=== PATIENT | female | born 2005 | race Two or more races ===

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

== ENCOUNTER 2025-04-01 18:08 | Emergency (ER) | payer SELFPAY ==
[2025-04-01 18:13] VITALS: BP 111/79; PULSE 86; TEMP 36.8; O2SAT 98; BMI 18.8
--- NOTE | 2025-04-01 19:31 | PC.NURSE ---
this patient complains of 7 to 10 days vaginal and rectal white discharge, along lower back pain and leg cramps, also complete oral ATB for ureaplasma infection
--- OUTSIDE RECORDS SUMMARY | 2025-04-01 19:34 | XMS_ITS | Encounter Summary ---
Author Organization [facility] Address [address] [place] [address] Care Team Providers Care Block Handler Name Role Phone Unallocated, [facility]oms Provider Primary Care Provi keith Encounter Details DateTypeDepartmentCare Team (Latest Contact Info)Qzmjekloejc02/07/2025Telephone CHARISSEChristina RahmanVermilionjon RÍOS [address] [place] [address] Aura Rojas MD [address] [place] [address] Social History Tobacco UseTypesPacks/DayYears UsedDateSmoking Tobacco: FormerCigarettes Smokeless Tobacco: NeverAlcohol UseStandard Drinks/WeekCommentsNot Currently0 (1 standard drink = 0.6 oz pure alcohol)Caffeine: occassionallyPHQ-2AnswerDate RecordedPatient Health Questionnaire-2 Acols941CommentsNoSex and Gender InformationValueDate RecordedSex Assigned at BirthNot on fileLegal Sex Lhzvdr5201/08/2023 2:42 PM EDTGender IdentityNot on fileSexual OrientationNot on fileOccupationIndustryJob Start DateJob End DateKalahariNot on fileNot on file Not on filedocumented as of this encounter Plan of Treatment DateTypeDepartmentCare Team (Latest Contact Info)Jyjwbhdoaqs83/12/2025 3:15 PM ESTPostpartum Visit CHARISSEChristina Lolly RÍOS [address] [place] [address] Aura Rojas MD [address] [place] [address] documented as of this encounter Goals GoalPatient Goal TypeAssociated ProblemsRecent ProgressPatient-Stated?Author Reminders Care PlanOB RemindersNoOpen Scheduling, Backgrounddocumented as of this encounter Visit Diagnoses Diagnosis Vaginal leukorrhea- Primary documented in this encounter Additional Health Concerns Active ProblemsNoted DateDiagnosed DateOB Oorunugjv39/02/2024 documented as of this encounter Care Teams Team MemberRelationshipSpecialtyStart DateEnd Date Unallocated, Noms Provider, [address] [place] [address] PCP - GeneralFamily Oxnunqco09/19/23documented as of this encounter
--- OUTSIDE RECORDS SUMMARY | 2025-04-01 19:34 | XMS_ITS | Encounter Summary ---
Author Organization [facility] Address [address] [place] [address] Care Team Providers Care Master Carpenter Name Role Phone Unallocated, Noms Provider Primary Care Provi keith Encounter Details DateTypeDepartmentCare Team (Latest Contact Info)Imeezknygfs38/07/2025Patient Outreach [facility] [address] [place] [address] Julianna Piper LPN [address] [place], [place] [id number] Social History Tobacco UseTypesPacks/DayYears UsedDateSmoking Tobacco: FormerCigarettes Smokeless Tobacco: NeverAlcohol UseStandard Drinks/WeekCommentsNot Currently0 (1 standard drink = 0.6 oz pure alcohol)Caffeine: occassionallyPHQ-2AnswerDate RecordedPatient Health Questionnaire-2 Gusmj651CommentsNoSex and Gender InformationValueDate RecordedSex Assigned at BirthNot on fileLegal Sex Hfszpm5301/08/2023 2:42 PM EDTGender IdentityNot on fileSexual OrientationNot on fileOccupationIndustryJob Start DateJob End DateKalahariNot on fileNot on file Not on filedocumented as of this encounter Progress Notes * Julianna Piper LPN - 04/01/2025 8:46 AM EST Monthly outreach. Call to pt X2, LVM. documented in this encounter Plan of Treatment DateTypeDepartmentCare Team (Latest Contact Info)Mvfghahqmxo89/12/2025 3:15 PM ESTPostpartum Visit KLAUS RÍOS [address] [place] [phone] Aura Rojas MD [address] [place] [address] documented as of this encounter Goals GoalPatient Goal TypeAssociated ProblemsRecent ProgressPatient-Stated?Author Reminders Care PlanOB RemindersNoOpen Scheduling, Backgrounddocumented as of this encounter Visit Diagnoses Not on filedocumented in this encounter Additional Health Concerns Active ProblemsNoted DateDiagnosed DateOB Usvnekpmw55/02/2024 documented as of this encounter Care Teams Team MemberRelationshipSpecialtyStart DateEnd Date Unallocated, Nomfeliz Brewster MD [address] [place] [address] PCP - GeneralFamily Wwbbwnky41/19/23documented as of this encounter
--- OUTSIDE RECORDS SUMMARY | 2025-04-01 19:34 | XMS_ITS | Clinical Summary ---
Author Organization [facility] Address [address] [place] [id number] Care Team Providers Care Abrasive Mixer Helper Name Role Phone Unavailable Primary Care Provider Unavailabl e Allergies No known active allergies Medications No known medications Active Problems ProblemNoted DateDiagnosed DateAnhydramnios in second trimester, fetus 1 04/06/2024 Assessment & Plan (04/06/2024 11:30 PM EST): - AF, VSS - Anhydramnios seen on US at office in [place] on 04/06 and confirmed upon arrival to [...] Dr. Sheikh () overnight. Estimated Date of SktmwtgjGilazxasQgz30/10/2025Based on Ultrasound Social History Tobacco UseTypesPacks/DayYears UsedDateSmoking Tobacco: Never Assessed Estimated Date of FexvcavjIcpeagalCjy45/10/2025Based on UltrasoundSex and Gender InformationValueDate RecordedSex Assigned at BirthNot on fileLegal SexFemale 04/06/2024 12:43 PM ESTGender IdentityNot on fileSexual OrientationNot on file Last Filed Vital Signs Vital SignReadingTime TakenCommentsBlood Usyjeyye987/5704/07/2024 5:51 AM EST Smufo454904/07/2024 5:51 AM AKBEtzpnyyjvpv20.9 ??C (98.4 ??F)04/07/2024 5:51 AM ESTRespiratory Nhcn818306/07/2023 5:51 AM ESTOxygen Ojbibphylj377%04/07/2024 5:51 AM ESTInhaled Oxygen Concentration--Xylvkz16.7 kg (125 lb)04/06/2024 9:18 PM EST Xzopjg369.9 cm (6')04/06/2024 9:18 PM ESTBody Mass Index16.9504/06/2024 9:18 PM ESTBody Mass Index Percentile1.60%04/06/2024 9:18 PM ESTGrowth Chart: [facility] (Girls, 2-20 Years) Plan of Treatment Health MaintenanceDue DateLast DoneCommentsPeds To Adult Transition Initial Fbtrbcqjym87/27/2018Peds To Adult Transition Annual Rdwwdolpwq38/27/2020HPV Vaccine (1 - 3-dose series)2020Meningococcal B Vaccine (1 of 2 - Standard) 2Anxiety Zwpinozfc98/27/2024Depression Fbibxayks86/27/2024DTaP,Tdap,Td Vaccine (1 - Tdap)2024Hepatitis B Vaccine (1 of 3 - 19+ 3-dose series) 5Covid-19 Vaccine (1 - 2024- season)2025Influenza Vaccine (#1) 5Chlamydia Screening (18-24), 03/29/2024GC (Gonorrhea) Screening (18-24), 4RSV Vaccine (1 - 1- dose 75+ series)2080HIV OxkoltjqaTaeoiavgi24/04/2024Hepatitis C Screening Sdhbkkztr15/04/2024Meningococcal Conjugate VaccineAged OutNo longer eligible based on patient's age to complete this topic Procedures Procedure NamePriorityDate/TimeAssociated DiagnosisCommentsGONORRHEA/CHLAMYDIA GCUEWbmvrxs71/12/2024 9:57 PM EST HIV 1/2 COMBO WITH REFLEX TO ZESBAZMVZXYNMQFCahppif13/04/2024 HEPATITIS C ANTIBODY IA WITH YLJKXVDZVUVIPujmvlt13/04/2024 from Last 3 Months or Most Recently Relevant to Health Maintenance Results * GONORRHEA/CHLAMYDIA NAAT (04/06/2024 9:57 PM EST)ComponentValueRef RangeTest MethodAnalysis TimePerformed AtPathologist SignatureNeisseria gonorrhoeae RNA Negative for Neisseria gonorrhoeae by amplificationNegative for Neisseria gonorrhoeae by amplification [facility] 04/07/2024 11:02 AM [facility] LABChlamydia trachomatis RNA Negative for Chlamydia trachomatis by amplificationNegative for Chlamydia trachomatis by amplificaton [facility] 04/07/2024 11:02 AM [facility] LABSpecimen (Source) Anatomical Location / LateralityCollection Method / VolumeCollection Time Received TimeSwabVAGINAL STRUCTURE / UnknownNon Blood / Nzmvddt5804/06/2024 9:57 PM EST04/06/2024 10:10 PM EST Narrative Authorizing ProviderResult TypeResult StatusJulianna Mckeon Palmer MDMICROBIOLOGYFinal ResultPerforming OrganizationAddressCity/State/ZIP CodePhone Number [facility] [address] * HIV 1/2 COMBO WITH REFLEX TO DIFFERENTIATION (03/29/2024)ComponentValueRef RangeTest MethodAnalysis TimePerformed AtPathologist SignatureHIV 12 Combo (Ag/Ab)NonreactiveOTHERSpecimen (Source)Anatomical Location / Laterality Collection Method / VolumeCollection TimeReceived TimeBloodBLOOD SPECIMEN / Unknown Narrative Resulting Agency Comment [facility] [place], [place] Authorizing ProviderResult TypeResult StatusAura Rojas MDLABORATORYFinal ResultPerforming OrganizationAddressCity/State/ZIP CodePhone Number OTHER * HEPATITIS C ANTIBODY IA WITH CONFIRMATION (03/29/2024)ComponentValueRef Range Test MethodAnalysis TimePerformed AtPathologist SignatureHep C Antibody IA NegativeNegativeOTHERSpecimen (Source)Anatomical Location / Laterality Collection Method / VolumeCollection TimeReceived TimeBloodBLOOD SPECIMEN / Unknown Narrative Resulting Agency Comment [facility] [place], [place] Authorizing ProviderResult TypeResult StatusAura Rojas MDLABORATORYFinal ResultPerforming OrganizationAddressCity/State/ZIP CodePhone Number OTHER from Last 3 Months or Most Recently Relevant to Health Maintenance Insurance
--- OUTSIDE RECORDS SUMMARY | 2025-04-01 19:34 | XMS_ITS | Clinical Summary ---
Author Organization [facility] Address [address] [place] [address] Care Team Providers Care Gang Plank Workman Name Role Phone Unallocated, Noms Provider Primary Care Provi keith Allergies No known active allergies Medications MedicationSigDispense QuantityRefillsLast FilledStart DateEnd DateStatus MV-Min-Fe Fum-FA-DHA (/Folic Acid+DHA) 27-0.8-200 MG capsule Indications: care in first trimester ([facility])Take 1 capsule by mouth Daily 30 capsule 1105Active omeprazole (PriLOSEC) [address] capsule Indications:NauseaTake 1 capsule (40 mg) by mouth in the morning. Take before meals. Do not crush or chew.. 30 capsule 11008/08/481425/6Active Vit-Fe Dvd-XT-Rgras ( Multi +DHA) 27-0.8-228 MG capsule 5Active Vit-Fe Fumarate-FA (M-Manisha Plus) 27-1 MG tablet 4Active azithromycin (Zithromax) 500 MG tablet Indications:Vaginal leukorrheaTake 1 tablet (500 mg) by mouth Daily for 10 days 10 tablet 511/5Active Encounters DateTypeDepartmentCare CcjdGxhidbvgonq12/07/2025Telephone [facility] [place] [facility] [address] [place] [address] Aura Rojas MD 04/01/2025Patient Outreach [facility] [address] [place] [address] Julianna Piper LPN 03/03/2025Patient Outreach [facility] [address] [place] [address] Julianna Piper LPN 02/24/2025Results Follow-Up [facility] [place] [facility] [address] [place] [address] Aura Rojas MD GENITAL MYCOPLASMAS SANCHO, SWAB02/22/2025Patient Outreach [facility] [address] [place] [address] Julianna Piper LPN 02/20/2025External Result Encounter [facility]OM[facility] External Department Unsolicited Aura Rojas MD 02/19/2025External Result Encounter [facility] External Department Unsolicited Aura Rojas MD 02/19/2025External Result Encounter [facility] External Department Unsolicited Aura Rojas MD 02/19/2025External Result Encounter [facility] External Department Unsolicited Aura Rojas MD 02/19/2025External Result Encounter [facility] External Department Unsolicited Aura Rojas MD 02/19/2025External Result Encounter [facility] External Department Unsolicited Aura Rojas MD 02/19/2025External Result Encounter [facility] External Department Unsolicited Aura Rojas MD 02/19/2025External Result Encounter NOMS External Department Unsolicited Aura Rojas MD 02/17/2025 3:00 PM EDTRoutine [facility] [place] AMEZQUITALuisa [address] [place] [address] Aura Rojas MD Acute vaginitis (Primary Dx); Third trimester ([facility]); 37 weeks gestation of ([facility]); Vaginal bleeding in ([facility]); Nausea and vomiting in ([facility]); Ketonuria; Choroid plexus cyst of fetus affecting care of mother, antepartum, single or unspecified fetus ([facility]); Hyperemesis; Vaginitis and vulvovaginitis; Cervicitis and endocervicitis; Vaginal discharge; Vaginal itching; Leukocytes in urine02/17/20253204Dwrwzs91/17/2025 1:45 PM EDTRoutine [facility] [place] KHUSHBU [address] [place] [phone] Aura Rojas MD screening for streptococcus B ([facility]); Third trimester ([facility]); 36 weeks gestation of ([facility]); Vaginal bleeding in ([facility]); Nausea and vomiting in ([facility]); Ketonuria; Choroid plexus cyst of fetus affecting care of mother, antepartum, single or unspecified fetus ([facility]); Cztaareakpc66/17/2025 1:15 PM EDTAncillary Procedure [facility] [place] PEROSNNANCI [address] [place] [address] Kidney abnormality of fetus on ultrasound ([facility]); Choroid plexus cyst of fetus affecting care of mother, antepartum, single or unspecified fetus ([facility]); Encounter for follow-up ultrasound of anatomy ([facility]); Short interval between pregnancies affecting in third trimester, antepartum ([facility])02/09/20259714Jocnkf42/12/2025Patient Outreach [facility] [address] [place] [address] Julianna Piper LPN 02/03/2025Telephone [facility] [place] [address] [place] [address] Aura Rojas MD 01/21/2025Telephone [facility] [place] [facility] [address] [place] [address] Aura Rojas MD 01/05/2025Patient Outreach [facility] [address] [place] [phone] Julianna Piper LPN from Last 3 Months Social History Tobacco UseTypesPacks/DayYears UsedDateSmoking Tobacco: FormerCigarettes Smokeless Tobacco: Never Tobacco Cessation:Counseling Given: Not Answered Alcohol UseStandard Drinks/WeekCommentsNot Currently0 (1 standard drink = 0.6 oz pure alcohol)Caffeine: occassionallyPHQ-2AnswerDate RecordedPatient Health Questionnaire-2 Thjnf382CommentsNoSex and Gender Information ValueDate RecordedSex Assigned at BirthNot on fileLegal JngZzjwmx79/16/2023 2:42 PM EDTGender IdentityNot on fileSexual OrientationNot on fileOccupationIndustry Job Start DateJob End DateKalahariNot on fileNot on fileNot on file Last Filed Vital Signs Vital SignReadingTime TakenCommentsBlood Snbgtcfp552/68002/17/2025 2:21 PM EDT Pulse--Temperature--Respiratory Rate--Oxygen Saturation--Inhaled Oxygen Concentration--Koeaig26.4 kg (150 lb 12.8 oz)02/17/2025 2:21 PM IVFRkfxtx786.6 cm (5' 6 )08/09/2024 2:26 PM EDTBody Mass Index24.34008/09/2024 2:26 PM EDT Plan of Treatment DateTypeDepartmentCare Team (Latest Contact Info)Kunatquauxh90/12/2025 3:15 PM ESTPostpartum Visit [facility] [address] [place] [address] Aura Rojas MD [address] [facility] [address] [place] [address] Health MaintenanceDue DateLast DoneCommentsCOVID-19 Vaccine ( season) 2025Influenza Vaccine (#1)2025Pneumococcal Vaccine: Pediatrics (0 to 5 Years) and At-Risk Patients (6 to 64 Years)Aged OutNo longer eligible based on patient's age to complete this topic Goals GoalPatient Goal TypeAssociated ProblemsRecent ProgressPatient-Stated?Author Reminders Care PlanOB RemindersNoOpen Scheduling, Background Procedures Procedure NamePriorityDate/TimeAssociated DiagnosisCommentsPOCT URINALYSIS LKVQUHFFVeyzjsi26/29/2025 8:23 AM EDT Third trimester ([facility]) 37 weeks gestation of ([facility]) CBC WITH AUTO TGLUHZABCMZYFkvanbq03/28/2025 8:05 AM EDT RUBELLA AB (IGG), IMMUNE ORVDZGVklcvmz01/27/2025 12:29 PM EDT HIV-1 AND HIV-2 IBMFKSPNGZCgsrbak73/27/2025 12:29 PM EDT HEPATITIS B SURFACE ANTIGEN ([facility])Vgvjctw2002/19/2025 12:29 PM EDT HCV ANTIBODY RFX TO QUANT HBGCqdbtjy56/27/2025 12:29 PM EDT AMNISURE(PAMG-1)STAT02/19/2025 2:50 AM EDT RPR W/RFX TO QUANT & TP ABS ([facility])STAT02/19/2025 2:22 AM EDT CBC WITH AUTO BZTLNADXDKEDVYBT73/27/2025 2:22 AM EDT OB URINE DRUG SCREEN (NO THC)Ffwkxgq0802/19/2025 1:55 AM EDT URINALYSIS, MANUAL IZLXYXIF22/27/2025 1:55 AM EDT GENITAL MYCOPLASMAS SANCHO, BBHIVfwojxj31/25/2025 2:38 AM EDT Vaginitis and vulvovaginitis Cervicitis and endocervicitis Vaginal discharge Vaginal itching URINE CULTURE CLEAN CATCH BTIGVVWwzbcat62/25/2025 2:38 AM EDT CULTURE, URINE, TWDPVOGSombhtl22/25/2025 2:38 AM EDT NUSWAB VAGINITIS PLUS (VG+)Kgkueob4002/17/2025 2:38 AM EDT Vaginitis and vulvovaginitis Cervicitis and endocervicitis Vaginal discharge Vaginal itching POCT URINALYSIS QCSTVNNZZppsuuh85/17/2025 2:22 PM EDT Third trimester ([facility]) 36 weeks gestation of ([facility]) US OB FOLLOW UP TRANSABDOMINAL HCSRHDOZNdkvykg31/17/2025 1:55 PM EDT Kidney abnormality of fetus on ultrasound ([facility]) Choroid plexus cyst of fetus affecting care of mother, antepartum, single or unspecified fetus ([facility]) Encounter for follow-up ultrasound of anatomy ([facility]) Short interval between pregnancies affecting in third trimester, antepartum ([facility]) STREP B ZONNCKTcwhmsm21/17/2025 12:00 PM EDT screening for streptococcus B ([facility]) from Last 3 Months Results * (ABNORMAL) POCT urinalysis dipstick manually resulted (02/21/2025 8:23 AM EDT) Only the most recent of2 resultswithin the time period is included. ComponentValueRef RangeTest MethodAnalysis TimePerformed AtPathologist Signature Leukocytes, UAPositiveNegative - 500+++ Wilberto/mcLSpecimen (Source)Anatomical Location / LateralityCollection Method / VolumeCollection TimeReceived TimeUrine 02/21/2025 8:23 AM EDT Narrative Authorizing ProviderResult TypeResult StatusAura Rojas MDPOINT OF CARE TEST ENTER/EDIT ORDERABLESFinal Result * CBC auto differential (02/20/2025 8:05 AM EDT) Only the most recent of2 resultswithin the time period is included. ComponentValueRef RangeTest MethodAnalysis TimePerformed AtPathologist Signature WBC7.43.8 - 11.6 [CFU]/mL02/20/2025 8:18 [facility] UNCORRECTED WHITE BLOOD COUNT7.43.8 - 11.6 10*3/uL02/20/2025 8:18 AM EDT [facility] CtrRBC4.223.60 - 5.00 10*6/uL02/20/2025 8:18 AM [facility] FghTLCSASFBFI52.111.8 - 15.4 g/dL02/20/2025 8:18 AM [facility] HryHEBKBIEGUG70.134.0 - 46.4 %02/20/2025 8:18 AM [facility] LsaUKA61.480 - 100 fL02/20/2025 8:18 AM [facility] BrrKTR54.124.7 - 34.3 pg02/20/2025 8:18 AM [facility] DkuQBQC80.432.0 - 35.0 g/dL02/20/2025 8:18 AM [facility] CtrRED CELL DISTRIBUTION WIDTH, RDW14.411.9 - 15.3 % 02/20/2025 8:18 AM [facility] CtrPLATELET WTRZL482515 - 450 10*3/uL02/20/2025 8:18 AM [facility] CtrMEAN PLATELET VOLUME, MPV8.46.3 - 10.7 fL02/20/2025 8:18 AM [facility] Ctr NEUTROPHILS, %70.0. %02/20/2025 8:18 AM [facility] Ctr LYMPHOCYTES, %21.3. %02/20/2025 8:18 AM [facility] Ctr MONOCYTE/MACROPHAGE, %6.6. %02/20/2025 8:18 AM [facility] Ctr EOSINOPHILS, %1.3. %02/20/2025 8:18 AM [facility] Ctr BASOPHILS, %0.8. %02/20/2025 8:18 AM [facility] CtrNRBC0.10 - 0.5 /100{WBC}02/20/2025 8:18 AM [facility] CtrNEUTROPHILS5.2 1.8 - 7.7 10*3/uL02/20/2025 8:18 AM [facility] CtrLYMPHOCYTES 1.61.00 - 4.8 10*3/uL02/20/2025 8:18 AM [facility] Ctr MONOCYTES0.50.0 - 0.8 10*3/uL02/20/2025 8:18 AM [facility] CtrEOSINOPHILS0.10.0 - 0.45 10*3/uL02/20/2025 8:18 AM [facility] CtrBASOPHILS0.10.0 - 0.2 10*3/uL02/20/2025 8:18 AM [facility] CtrSpecimen (Source)Anatomical Location / LateralityCollection Method / VolumeCollection TimeReceived TimeBlood (Blood)02/20/2025 8:05 AM EDT02/20/2025 8:10 AM EDT Narrative [facility] - 02/20/2025 8:18 AM EDT Comment Draw at 630 am Authorizing ProviderResult TypeResult StatusAura COWAN BLOOD ORDERABLESFinal ResultPerforming OrganizationAddressCity/State/[place] [address], [facility] [address] [place] [address] * HEPATITIS B SURFACE ANTIGEN ([facility]) (02/19/2025 12:29 PM EDT)ComponentValueRef RangeTest MethodAnalysis TimePerformed AtPathologist SignatureHBSAG SCREEN TxgrgdjcThphvyht94/30/2025 4:36 AM EDTFWASHINGTON RURAL HEALTH COLLABORATIVE & NORTHWEST RURAL HEALTH NETWORKComment: Performed at: ??CB - [facility] [address] ??[id number] Driving Teacher: Jameel Huynh PhD, Phone: ??[phone] Specimen (Source)Anatomical Location / LateralityCollection Method / Volume Collection TimeReceived TimeOtherTopography unknown / Gsqpdgm1402/19/2025 12:29 PM EDT02/19/2025 12:39 PM EDT Narrative Authorizing ProviderResult TypeResult StatusAura COWAN BLOOD ORDERABLESFinal ResultPerforming OrganizationAddressCity/State/[place] [address], * Hcv antibody rfx to quant pcr (02/19/2025 12:29 PM EDT)ComponentValueRef Range Test MethodAnalysis TimePerformed AtPathologist SignatureHEPATITIS C VIRUS ANTIBODYNon ReactiveNon Dtimoyqm92/30/2025 4:36 AM EDTFIREVIRGINIA MASON HOSPITALINTERPRETATION HEPATITIS CComment.02/22/2025 4:36 AM EDTFIRELANDSComment: Not infected with HCV unless early or acute infection is suspected (which may be delayed in an immunocompromised individual), or other evidence exists to indicate HCV infection. Specimen (Source)Anatomical Location / LateralityCollection Method / Volume Collection TimeReceived TimeOtherTopography unknown / Xhansga3302/19/2025 12:29 PM EDT02/19/2025 12:39 PM EDT Narrative Authorizing ProviderResult TypeResult StatusAura Rojas MDSC[facility] BLOOD ORDERABLESFinal ResultPerforming OrganizationAddressMckitrick [facility] HospitalPhone Number [facility] [address] [place] [address], * Rubella antibody, IgG (02/19/2025 12:29 PM EDT)ComponentValueRef RangeTest MethodAnalysis TimePerformed AtPathologist SignatureRUBELLA IGG ANTIBODY1.50 Immune >0.9902/22/2025 6:08 AM EDTFIRELANDSComment: Non-immune <0.90 ?Equivocal ??0.90 - 0.99 Immune >0.99 Performed at: ?? - [facility] ??[id number] Driving Teacher: Jameel Huynh PhD, Phone: ??[phone] Specimen (Source)Anatomical Location / LateralityCollection Method / Volume Collection TimeReceived TimeOtherTopography unknown / Rlpksad6702/19/2025 12:29 PM EDT02/19/2025 12:39 PM EDT Narrative Authorizing ProviderResult TypeResult StatusAura Rojas MDSC[facility] BLOOD ORDERABLESFinal ResultPerforming OrganizationAddPenn State Health St[facility]ENTERB CodePhone Number [facility] [address] [place] [address], [place] * HIV-1 and HIV-2 antibodies (02/19/2025 12:29 PM EDT)ComponentValueRef Range Test MethodAnalysis TimePerformed AtPathologist SignatureHIV SCREEN 4TH GENERATIONNon ReactiveNon Iajppjps66/30/2025 4:36 AM EDTFIRELANDSComment: HIV-1/HIV-2 antibodies and HIV-1 p24 antigen were NOT detected. There is no laboratory evidence of HIV infection. HIV Negative Performed at: ?? - [facility] ??[id number] Driving Teacher: Jameel Huynh PhD, Phone: ??[phone] Specimen (Source)Anatomical Location / LateralityCollection Method / Volume Collection TimeReceived TimeOtherTopography unknown / Nwpkmzh3402/19/2025 12:29 PM EDT02/19/2025 12:39 PM EDT Narrative Authorizing ProviderResult TypeResult StatusAura Rojas MDSC[facility] BLOOD ORDERABLESFinal ResultPerforming OrganizationAddressCity/State/ZIP CodePhone Number [place] [phone], * AMNISURE(PAMG-1) (02/19/2025 2:50 AM EDT)ComponentValueRef RangeTest Method Analysis TimePerformed AtPathologist SignatureAMNISURENegativeNegative 02/19/2025 3:23 AM [facility] CtrSpecimen (Source) Anatomical Location / LateralityCollection Method / VolumeCollection Time Received TimeOtherTopography unknown / Usiewfy9802/19/2025 2:50 AM EDT02/19/2025 3:11 AM EDT Narrative [facility] - 02/19/2025 3:23 AM EDT Comment For suspected repture of membranes Authorizing ProviderResult TypeResult StatusAura Rojas MDSC[facility] BLOOD ORDERABLESFinal ResultPerforming OrganizationAddressMckitrick Hospital/[facility]/ZIP CodePhone Number [place] [phone], [facility] [address] [place] [phone] * RPR W/RFX TO QUANT & TP ABS ([facility]) (02/19/2025 2:22 AM EDT)ComponentValueRef RangeTest MethodAnalysis TimePerformed AtPathologist SignatureRPR, RFX QUANT RPRNon ReactiveNon Wrfzskrb82/28/2025 9:36 AM EDTFIREVIRGINIA MASON HOSPITALComment: Performed at: ?? - [facility] [address] ??[id number] Driving Teacher: Jameel Huynh PhD, Phone: ??[phone] Specimen (Source)Anatomical Location / LateralityCollection Method / Volume Collection TimeReceived TimeOtherTopography unknown / Rmkshks8802/19/2025 2:22 AM EDT02/19/2025 2:30 AM EDT Narrative Authorizing ProviderResult TypeResult StatusAura Rojas MDSC[facility] BLOOD ORDERABLESFinal ResultPerforming OrganizationAddressMckitrick [facility] HospitalPhone Number [facility] [address] [place] [address], * OB URINE DRUG SCREEN (NO THC) (02/19/2025 1:55 AM EDT)ComponentValueRef Range Test MethodAnalysis TimePerformed AtPathologist SignatureAMPHETAMINE SCREEN,SWHIFTgilqktqQbisnclg45/27/2025 3:19 AM [facility] CtrBARBITURATE SCREEN,GOXFLDtiulupgRjxhpalf80/27/2025 3:19 AM [facility] CtrBENZODIAZEPINES SCREEN,UJLBXFmgjspmbRkbxtqwp53/27/2025 3:19 AM [facility] CtrCOCAINE SCREEN,URINENegativeNegative 02/19/2025 3:19 AM [facility] CtrOPIATE SCREEN,URINE YvvgoapaWqjumhbo52/27/2025 3:19 AM [facility] Ctr PHENCYCLIDINE SCREEN, PIDPXXprrczpzZuaechcw92/27/2025 3:19 AM [facility] CtrComment: These are unconfirmed results and should not be used for legal purposes. ??Drug Cut-Off Concentration: ? AMPH 1000 ng/mL ? DAYSI ??200 ng/mL ? YULIA ??200 ng/mL ? COCM ??300 ng/mL ? OP ?300 ng/mL ? PCP ?25 ng/mL Specimen (Source)Anatomical Location / LateralityCollection Method / Volume Collection TimeReceived WucxIdalh75/27/2025 1:55 AM EDT02/19/2025 3:03 AM EDT Narrative Authorizing ProviderResult TypeResult StatusAura Rojas MDSC[facility] BLOOD ORDERABLESFinal ResultPerforming OrganizationAddressty/[facility]ENTERB CodePhone Number [facility] [address] [place] [address], [facility] [address] [place] [address] * Urinalysis, manual only (02/19/2025 1:55 AM EDT)ComponentValueRef RangeTest MethodAnalysis TimePerformed AtPathologist SignatureCOLOR,URINEColorlessYellow 02/19/2025 2:23 AM [facility] CtrAPPEARANCE,URINEClearClear 02/19/2025 2:23 AM [facility] CtrSPECIFICY GRAVITY,URINE 1.0071.001 - 1.59545 2:23 AM [facility] CtrPH,URINE 6.05.0 - 9.009 2:23 AM [facility] CtrLEUKOCYTE ESTERASE,ITLQUTwhzfmtxXpdlggxq15/27/2025 2:23 AM [facility] CtrNITRITE,TDBCMNxbkruuyIffjgptr88/27/2025 2:23 AM [facility] CtrPROTEIN,URINENegativeNegative mg/dL02/19/2025 2:23 AM [facility] CtrGLUCOSE,URINE (UA)NormalNormal mg/dL02/19/2025 2:23 AM EDT [facility] CtrKETONES,VQXAAUdbhtynxDydalwad05/27/2025 2:23 AM [facility] CtrUROBILINOGEN,URINENormalNormal mg/dL 02/19/2025 2:23 AM [facility] CtrBILIRUBIN,URINENegative Aascpbnk97/27/2025 2:23 AM [facility] CtrOCCULT BLOOD,URINE LhearpeoNaljoefl41/27/2025 2:23 AM [facility] CtrSpecimen (Source)Anatomical Location / LateralityCollection Method / VolumeCollection TimeReceived VhzrWggsw98/27/2025 1:55 AM EDT02/19/2025 2:14 AM EDT Narrative [facility] - 02/19/2025 2:23 AM EDT Comment c/o urinary symptoms or increased blood pressure Name Collection Type:: Voided Authorizing ProviderResult TypeResult StatusAura COWAN URINE ORDERABLESFinal ResultPerforming OrganizationAddressCity/State/ZIP CodePhone Number [facility] [address] [facility] [place] [address], [facility] [address] [place] [address] * (ABNORMAL) GENITAL MYCOPLASMAS SANCHO, SWAB (02/17/2025 2:38 AM EDT)Component ValueRef RangeTest MethodAnalysis TimePerformed AtPathologist Signature MYCOPLASMA GENITALIUMPositive(A)NegativeLABCORPMYCOPLASMA HOMINISNegative NegativeLABCORPUREAPLASMA SPPPositive(A)NegativeLABCORPSpecimen (Source) Anatomical Location / LateralityCollection Method / VolumeCollection Time Received TimeVaginal Fluid02/17/2025 2:38 AM EDT02/17/2025 Narrative [facility] - 02/23/2025 6:07 AM EDT Test(s) 544498-Elasnmvzlq hominis SANCHO; 335097-Msezfcvuqw spp SANCHO was developed and its performance characteristics determined by [facility]. It has not been cleared or approved by the Food and Drug Administration. Performed at: ??01 - [facility] ??[id number] Driving Teacher: Josué Castillo MD, Phone: ??[phone] Authorizing ProviderResult TypeResult StatusAura COWAN CYTOLOGY ORDERABLESFinal ResultPerforming OrganizationAddressCity/State/ZIP CodePhone Number [facility] * Urine Culture Clean Catch Reflex (02/17/2025 2:38 AM EDT)ComponentValueRef RangeTest MethodAnalysis TimePerformed AtPathologist SignatureUr Cult 1Comment LABCORPComment: Culture shows less than 10,000 colony forming units of bacteria per milliliter of urine. This colony count is not generally considered to be clinically significant. Specimen (Source)Anatomical Location / LateralityCollection Method / Volume Collection TimeReceived Time02/17/2025 2:38 AM EDT02/17/2025 Narrative [facility] - 02/23/2025 6:07 AM EDT Performed at: 02 - [facility] ??[id number] Driving Teacher: Jameel Huynh PhD, Phone: ??[phone] Authorizing ProviderResult TypeResult StatusAura COWAN URINE ORDERABLESFinal ResultPerforming OrganizationAddressCity/State/ZIP CodePhone Number [facility] * NuSwab Vaginitis Plus (VG+) (02/17/2025 2:38 AM EDT)ComponentValueRef Range Test MethodAnalysis TimePerformed AtPathologist SignatureAtopobium VaginaeLow - 0ScoreLABCORPBVAB 2Low - 0ScoreLABCORPMegasphaera 1Low - 0ScoreLABCORP Comment: Calculate total score by adding the 3 individual bacterial vaginosis (BV) marker scores together. ??Total score is interpreted as follows: Total score 0-1: Indicates the absence of BV. Total score ?? 2: Indeterminate for BV. Additional clinical ? data should be evaluated to establish a ? diagnosis. Total score 3-6: Indicates the presence of BV. Lida Albicans, NAANegativeNegativeLABCORPCandida Glabrata, NAANegative NegativeLABCORPTrich Vag By NAANegativeNegativeLABCORPChlamydia Trachomatis, SANCHO NegativeNegativeLABCORPNeisseria Gonorrhoeae, NAANegativeNegativeLABCORPSpecimen (Source)Anatomical Location / LateralityCollection Method / VolumeCollection TimeReceived TimeVaginal Fluid02/17/2025 2:38 AM EDT02/17/2025 Narrative [facility] - 02/23/2025 6:07 AM EDT Test(s) 799272- Atopobium vaginae; 272678- BVAB 2; 307305- ?Megasphaera 1 was developed and its performance characteristics determined by [facility]. It has not been cleared or approved by the Food and Drug Administration. Test(s) 496056-Jhrcjhi albicans, SANCHO; 421379-Wlxcccv glabrata, SANCHO was developed and its performance characteristics determined by [facility]. It has not been cleared or approved by the Food and Drug Administration. Performed at: ??01 - [facility] [address] ??[id number] Driving Teacher: Josué Castillo MD, Phone: ??[phone] Authorizing ProviderResult TypeResult StatusAura COWAN MICROBIOLOGY - GENERAL ORDERABLESFinal ResultPerforming OrganizationAddressCity/State/ZIP Code Phone Number [facility] * Urine culture (02/17/2025 2:38 AM EDT)ComponentValueRef RangeTest Method Analysis TimePerformed AtPathologist SignatureUrine Cult Rt StatusFinal report [facility] (Source)Anatomical Location / LateralityCollection Method / VolumeCollection TimeReceived Time02/17/2025 2:38 AM EDT02/17/2025 Narrative [facility] - 02/23/2025 6:07 AM EDT Performed at: 02 - [address] ??[id number] Driving Teacher: Jameel Huynh PhD, Phone: ??[phone] Authorizing ProviderResult TypeResult StatusAura COWAN MICROBIOLOGY - GENERAL ORDERABLESFinal ResultPerforming OrganizationAddressCity/State/ZIP Code Phone Number [facility] * OB follow up transabdominal approach (02/09/2025 1:55 PM EDT)Anatomical RegionLateralityModalityBodyUltrasoundStudy GAStudy DateStudy EDDWorking GERHARD (Source)51 (Ultrasound)Fetus A MeasurementsValueGA (days) Biparietal DiameterHead CircumferenceAbdominal CircumferenceFemur LengthFetal Ulna LengthFetal Humerus LengthFetal Tibia LengthAmniotic Fluid Index Quadrant 1Amniotic Fluid Index Quadrant 2Amniotic Fluid Index Quadrant 3Amniotic Fluid Index Quadrant 4Amniotic Fluid IndexDeep Vertical PocketUA SD RatioUA Resistance IndexUA Pulsatility IndexMCA SD RatioMCA Resistance IndexMCA Pulsatility IndexHeart RateTWIN DISCORDANCECERVICAL W/FUNDAL PRESSURECERVICAL W/ VALSALVASpecimen (Source)Anatomical Location / LateralityCollection Method / VolumeCollection TimeReceived Time Narrative 02/19/2025 11:32 PM EDT Table formatting from the original result was not included. Images from the original result were not included. ?? Obstetrics & Gynecology ? [address] ? [address] ? [address] ?[address], [address] ? [place] [address] ?[place] [address] ? - - - - - - - - - - - - - - - - - - - - - - - - - - - - - - - - - - - - - - - - - - - - - - - - - - - - - - - - - - - - - - - - - - ?Second / Third Trimester Ultrasound Patient name: Adriana Holt : 2005 (19 y.o.) Date of exam: 02/09/25 - - - - - - - - - - - - - - - - - - - - - - - - - - - - - - - Indication: short interval, Method: Transabdominal View: Adequate - - - - - - - - - - - - - - - - - - - - - - - - - - - - - - - : Type of gestation: Delvalle Number of fetuses: 1 - - - - - - - - - - - - - - - - - - - - - - - - - - - - - - - Assigned Dating based on CRL: Estimated Date of Delivery: 03/04/25 GA by GERHARD: [id number] - - - - - - - - - - - - - - - - - - - - - - - - - - - - - - - Biometry: BPD ?? AC FL EFW 61 % 50 % 93 % 11 % 69 % EFW: 6 lb 15 oz GA by biometry: 36 w 6 d - - - - - - - - - - - - - - - - - - - - - - - - - - - - - - - General Evaluation: Cardiac activity: present FHR: 129 bpm movements: visualized Presentation: Cephalic Placenta: anterior Umbilical cord: 3 vessel cord Amniotic fluid: normal BLAKE: 18.6 cm - - - - - - - - - - - - - - - - - - - - - - - - - - - - - - - Anatomy: Head/Neck: Lateral ventricles: visualized Choroid plexus:visualized, no cysts visualized Midline falx: visualized Cavum septi pellucidi: visualized Thalami: visualized Cerebellum: visualized Cisterna magna: visualized Nose/Lips: visualized Profile: visualized Heart/Thorax: 4-chamber view: visualized LVOT: visualized RVOT: visualized 3-vessel view: visualized Abdomen: Stomach: visualized, left sided Bowel: visualized Right kidney: visualized, no dilation Left kidney: visualized, no dilation Bladder: visualized Genitals: visualized - - - - - - - - - - - - - - - - - - - - - - - - - - - - - - - - - - - - - - - - - - - - - - - - - - - - - - - - - - - - - - - - - - Impression: There is a single intrauterine visualized. biometry is consistent with the established dates. Serial growth is within normal limits. The EFW is at the 69th percentile. The anatomy visualized appears normal. The amniotic fluid is normal. *Please note that a normal ultrasound does not rule out anomalies* - - - - - - - - - - - - - - - - - - - - - - - - - - - - - - - - - - - - - - - - - - - - - - - - - - - - - - - - - - - - - - - - - - Ordering/Reading Provider: Aura Rojas M.D. ??Doctor Of Radiology: Apryl Pineda RDMS Authorizing ProviderResult TypeResult StatusAura MONCADA OB US PROCEDURESFinal Result * Strep B screen (02/09/2025 12:00 PM EDT)ComponentValueRef RangeTest Method Analysis TimePerformed AtPathologist SignaturePRAGUE COMMUNITY [facility] – [place] ORGANISMStrep agalactiae - (group b)02/11/2025 10:47 AM [facility] CtrSpecimen (Source)Anatomical Location / LateralityCollection Method / VolumeCollection TimeReceived TimeSwabVaginal swab / [id number]/09/2025 12:00 PM EDT02/09/2025 4:10 PM EDT Narrative Authorizing ProviderResult TypeResult StatusAura COWAN MICROBIOLOGY - GENERAL ORDERABLESFinal ResultPerforming OrganizationAddressCity/State/ZIP Code Phone Number [place] [address], [facility] [address] [facility] [place] [address] from Last 3 Months Additional Health Concerns Active ProblemsNoted DateDiagnosed DateOB Kwqgysvxp89/02/2024 Insurance * Guarantor: Chandni Holt TypeRelation to PatientDate of BirthPhone Billing AddressPersonal/VnjbveXbse24/27/2006 [address] [place] [address] Care Teams Team MemberRelationshipSpecialtyStart DateEnd Date Unallocated, [place] Provider, [address] [place] [address] PCP - GeneralFamily Rmdhqhtd00/19/23
--- NOTE | 2025-04-01 19:42 | ED.GENADUL1 ---
HPI HPI - General Adult General Chief complaint: Urogenital-Female Stated complaint: Vaginal Discharge Time Seen by Provider: 04/01/25 19:21 Source: patient Mode of arrival: walk-in History of Present Illness HPI narrative: Patient is a 19-year-old female who is 6 weeks from a vaginal from her second child, she has had 3 pregnancies, with complaints of white to clear vaginal discharge that has been increasing for about a week. She states that yesterday it was so much that it soaked her shorts. She denies any fevers, night sweats, or chills. She was treated with an antibiotic, name unknown, for Ureaplasma 2 days . She did call her TE[facility], Dr. Rojas in [place], and was prescribed azithromycin for 10 days. She does have an appointment with her on April 06 but felt that she could not wait until then as the discharge was increasing. She is having some cramps but denies abdominal or pelvic pain. Her bleeding has resolved. Related Data Allergies Allergy/AdvReac Type Severity Reaction Status Date / Time No Known Drug Allergies Allergy Verified 04/01/25 18:13 PFSH PFS Social History Little interest or pleasure in doing things: not at all Feeling down, depressed, or hopeless: not at all Exam Narrative Exam Narrative: General: No distress, age-appropriate Skin: Warm, dry, no pallor. No rash. Head: Normocephalic, atraumatic. Neck: Supple, non-tender. Eye: Pupils are equal, round and EOMI. No scleral icterus. Ears, Nose, Mouth, and Throat: No nasal mucosal hypertrophy. Oral mucosa is moist, no posterior oropharynx erythema, uvula is mid-line Cardiovascular: Regular Rate and Rhythm without murmur, gallop or rub. Respiratory: No accessory muscle use or respiratory distress. Lungs are clear to auscultation, no wheezing, rales or rhonchi Chest Wall: no tenderness Musculoskeletal: Full ROM of all extremities, no calf or popliteal tenderness GI: Abdomen is soft, non-distended, non tender to palpation. No masses appreciated. No rebound, guarding, or rigidity noted. Neurological: A&O x4. No cranial nerve dysfunction observed. No truncal ataxia. Moves all extremities. Sensation intact. Psychiatric: Cooperative and interactive. Normal mood and affect. Constitutional Vital Signs, click to edit/add: Last Vital Signs Temp 98.3 F 04/01/25 18:13 Pulse 86 04/01/25 18:13 Resp 16 04/01/25 18:13 BP 111/79 04/01/25 18:13 Pulse Ox 98 04/01/25 18:13 O2 Del Method Room Air 04/01/25 18:13 Documenting provider has reviewed patient's vital signs: yes GI Inspection: normal to inspection External Female Exam: normal appearance of the urethra Course Vital Signs Vital signs: Vital Signs Temperature 98.3 F 04/01/25 18:13 Pulse Rate 86 04/01/25 18:13 Respiratory Rate 16 04/01/25 18:13 Blood Pressure 111/79 04/01/25 18:13 Pulse Oximetry 98 04/01/25 18:13 Oxygen Delivery Method Room Air 04/01/25 18:13 Temperature 98.3 F 04/01/25 18:13 Pulse Rate 86 04/01/25 18:13 Respiratory Rate 16 04/01/25 18:13 Blood Pressure 111/79 04/01/25 18:13 Pulse Oximetry 98 04/01/25 18:13 Oxygen Delivery Method Room Air 04/01/25 18:13 Medical Decision Making [facility] Narrative Medical decision making narrative: This is a 19-year-old female that presents with complaints of 1 week of white/clear vaginal discharge and is 6 weeks from a vaginal . Yesterday it soaked her shoulders. She denies any fever, night sweats, chills, abdominal or pelvic pain. She had Ureaplasma 2 days postoperatively and was given antibiotics for this. She sees Dr. Rojas [facility] in [place]. She did call her office with the above complaints and was prescribed azithromycin x 10 days. She does have a follow-up appointment with her on April 06. Her bleeding has resolved. On arrival patient is in no distress, nontoxic-appearing, vitals are hemodynamically stable. Temperature is afebrile at 98.3. On pelvic exam there is copious amounts of white/clear discharge in the vaginal vault and on the cervix. UA ordered. GC/chlamydia, wet prep swabs sent. Wet prep with few WBCs and moderate amount of bacteria. GC/chlamydia pending, will call if results positive. Given her presentation, exam, and labs, her vaginal discharge is most likely physiologic lochia, though mild nonspecific bacterial overgrowth is possible. She is clinically stable and has no signs of acute infection, so outpatient management is appropriate. The patient will continue her current azithromycin course, practice supportive hygiene measures, and follow up with her TECHNIC[facility] as scheduled. Return precautions were reviewed, including fever, worsening pelvic pain, foul-smelling discharge, or heavy bleeding. Patient discharged in stable condition, has prescription for azithromycin x 10 days, and will follow-up with April 06 with her TECHNIC[facility]. Differential Diagnosis Differential Diagnosis: Physiologic discharge, BV, candidiasis, chlamydia/gonorrhea Lab Data Lab results reviewed: Yes I reviewed the patient's lab results Labs: Lab Results 04/01/25 Range/Units 18:20 Urine Color Yellow (YELLOW) Urine Clarity Sl cloudy (CLEAR) Urine pH 6.0 (5.0-9.0) Ur Specific [place] 1.020 (1.005-1.025) Urine Protein Trace (NEG/TRACE) mg/dL Urine Glucose (UA) Negative (NEGATIVE) mg/dL Urine Ketones 40 A (NEGATIVE) mg/dL Urine Occult Blood Negative (NEGATIVE) Urine Nitrite Negative (NEGATIVE) Urine Bilirubin Small A (NEGATIVE) Urine Urobilinogen 0.2 (0.2-1.0) EU/dL Ur Leukocyte Esterase Negative (NEGATIVE) Discharge Plan Discharge Chief Complaint: Urogenital-Female Clinical Impression: Infection due to Ureaplasma parvum Patient Disposition: Home, Self-Care Time of Disposition Decision: 20:36 Condition: Good Mode of Transportation: Private Vehicle Print Language: Swedish Additional Instructions: Continue azithromycin as prescribed by your TECHNICIAN ANATOM[facility] PATHOLOG[facility]. Do not start or stop any new antibiotics unless directed by your doctor. You may take [id number]-[id number] acetaminophen (Tylenol) or ibuprofen (Motrin/Advil) for discomfort or cramping if needed (unless otherwise instructed). Self-care: Wear cotton underwear and change it regularly. Avoid tight-fitting clothing that can trap moisture. Do not douche or use scented soaps, sprays, or wipes in the vaginal area. Continue normal hygiene with mild soap and water. Avoid sexual intercourse until cleared by your TECHNICIAN ANATOM[facility] PATHOLOGY or until symptoms improve. Follow-up: Follow up with Dr. Rojas (TECHNICIAN ANATOMIC PATHOLOGY) as scheduled on April 06. If your discharge worsens or new symptoms develop before that visit, contact her office sooner or return to the ER. Return to the Emergency Department or Call Your Doctor Immediately If You Develop: Fever (>=00.4?F / 38?C) New or worsening pelvic or abdominal pain Foul-smelling discharge Heavy bleeding or passage of large clots Referrals: Physician,Non-Staff, [Primary Care Provider] - 1 week Aura Rojas MD [Physician] - 04/06/25 Referral Note: Follow-up as scheduled. Discharge Date/Time: 04/01/25 20:46
[2025-04-01 19:43] LABS: Glucose Urine UA NEGATIVE (NEGATIVE)
--- NOTE | 2025-04-01 20:25 | PC.NURSE ---
this patient updated that we are waiting on test results, and this patient said ok, while sitting upright on the bed talking on her cell phone. this patient voices no concerns, needs and shows no signs of distress
--- NOTE | 2025-04-01 20:47 | PC.NURSE ---
i gave this patient verbal and written discharge orders and this patient voices yes to understanding these. at time of discharge this patient voices no concerns, needs and shows no signs of distress
[2025-04-04 22:07] LABS: Neisseria gonorrhoeae, NAA Negative (Negative)
== END 2025-04-01 20:46 | disposition home or self-care (01) ==
PROVIDERS: Physician Assistant; Emergency Provider Internal Medicine
DX: O86.19 Other infection of genital tract following delivery (principal); B96.89 Other specified bacterial agents as the cause of diseases classified elsewhere
CPT/HCPCS: 81003; 87210; 87491; 87591; 99284